=== PATIENT | male | born 1960 | race Caucasian/White ===

== ENCOUNTER 2022-07-06 21:34 | Emergency (ER) | payer SELFPAY ==
[~2022-07-06] VITALS: Ht 165.1 cm; Wt 80.0 kg
[2022-07-06] MEDS ORDERED: HYDROCODONE/ACETAMINOPHEN 5/325MG TABLET PO ONE (23:45)
[2022-07-06] MEDS ORDERED: LIDOCAINE 5% PATCH TOP SCH (23:45)
[2022-07-07] MEDS ORDERED: CYCLOBENZAPRINE 10MG TABLET PO ONE (02:15)
[2022-07-07] MEDS ORDERED: HYDROCODONE/ACETAMINOPHEN 5/325MG TABLET PO ONE (02:15)
[2022-07-07 02:41] VITALS: BP 149/82
[2022-07-07] MEDS ORDERED: CYCL5TAB MT (03:41)
[2022-07-07] MEDS ORDERED: ACET-2708 MT (03:41)
[2022-07-07] MEDS ORDERED: LIDO700A15 TP (03:41)
== END 2022-07-07 05:45 | disposition home or self-care (01) ==
LOC: ER 21:34
DX: M54.2 Cervicalgia (principal); M54.50 Low back pain, unspecified; I10 Essential (primary) hypertension; Z79.899 Other long term (current) drug therapy
CPT/HCPCS: 99284